=== PATIENT | female | born 1955 | race Caucasian/White ===

== ENCOUNTER 2017-01-05 15:50 | Emergency (ER) | payer BC, MEDICARE ==
[~2017-01-05] VITALS: Ht 154.9 cm; Wt 54.3 kg
[~2017-01-05 15:50] MED LIST: ACTO5TAB PO; DICL75 PO; HYDR-3533 PO
[2017-01-05 15:55] VITALS: BP 138/80; PULSE 95; RESP 16; TEMP 98.9; O2SAT 97
[2017-01-05] MEDS ORDERED: FISH500C (16:06)
[2017-01-05] MEDS ORDERED: ASPI81CH CHEW (16:06)
[2017-01-05] MEDS ORDERED: CENTTAB PO (16:06)
[2017-01-05] MEDS ORDERED: SODIUM CHLOR 0.9% 1000 ML INJ 1,000 ML IV SCH (16:19)
[2017-01-05] MEDS ORDERED: SODIUM CHLORIDE 0.9% FLUSH 10 ML FLUSH IV FLUSH PRN (16:30)
[2017-01-05 16:35] VITALS: O2SAT 96
[2017-01-05 16:35] LABS: BLOOD, URINE TRACE (NEG); GLUCOSE,URINE NEG (NEG); KETONE, URINE NEG (NEG); NITRITE,URINE NEG (NEG)
[2017-01-05 16:36] LABS: AUTOMATED NEUTROPHIL # 8.1 TH/MM3 (1.8-7.7); BASOPHIL % 0.4 % (0.0-2.0); EOSINOPHIL # 0.1 TH/MM3 (0-0.4); EOSINOPHIL % 0.6 % (0.0-4.0); LYMPH % 11.9 % (9.0-44.0); LYMPHOCYTE # 1.2 TH/MM3 (1.0-4.8); MEAN CELL VOLUME 88.8 FL (80.0-100.0); MEAN CORPUSCULAR HEMOGLOBIN 31.3 PG (27.0-34.0); MEAN CORPUSCULAR HGB CONC 35.3 % (32.0-36.0); MONO % 5.8 % (0.0-8.0); NEUT % 81.3 % (16.0-70.0); PLATELET COUNT 222 TH/MM3 (150-450); RED BLOOD COUNT 4.17 MIL/MM3 (4.00-5.30); WHITE BLOOD COUNT 10.1 TH/MM3 (4.0-11.0)
[2017-01-05 16:38] VITALS: BP 132/67; PULSE 83; RESP 20; O2SAT 100
[2017-01-05 16:38] LABS: HEMO FLAGS DIFF FINAL
[2017-01-05 16:44] LABS: URINE COLOR YELLOW (YELLW/STRAW)
[2017-01-05 16:45] LABS: RBC, URINE 0-3 /hpf (0-3); SQUAMOUS EPITHELIAL CELL URINE 0-5 /hpf (0-5); WBC, URINE 0-2 /hpf (0-5)
[2017-01-05 16:46] LABS: CHLORIDE 104 MEQ/L (98-107); POTASSIUM 3.4 MEQ/L (3.5-5.1); SODIUM (NA) 139 MEQ/L (136-145)
[2017-01-05 16:48] LABS: COMMENT (UR) CULT NOT INDICATED; CULTURE IF INDICATED CULT NOT INDICATED
[2017-01-05 16:50] LABS: ANION GAP 7 MEQ/L (5-15); BLOOD UREA NITROGEN 9 MG/DL (7-18)
[2017-01-05 16:53] LABS: ALT (GPT) 33 U/L (10-53); AST (GOT) 23 U/L (15-37); GLOMERULAR FILTRATION RATE 91 ML/MIN (>89)
[2017-01-05 16:54] LABS: TOTAL BILIRUBIN ADULT 0.7 MG/DL (0.2-1.0)
[2017-01-05 16:56] LABS: ALKALINE PHOSPHATASE 102 U/L (45-117)
[2017-01-05 17:27] VITALS: BP 112/71; PULSE 88; RESP 20; O2SAT 100
[2017-01-05] MEDS ORDERED: IOHEXOL 350 MG/ML 10 ML VIAL (for RAD DIAG) IV ONE (17:33)
--- NOTE | 2017-01-05 17:51 | PD ---
HPI Chief Complaint: GI Complaint Time Seen by Provider: 16:11 Travel History International Travel<30 days: No Contact w/Intl Traveler<30days: No Traveled to known affect area: No History of Present Illness HPI This is a 61-year-old female who presents to the emergency department with lower abdominal pain that's been present for 3 days, constant, moderate severity associated with watery stools which are nonbloody. She denies any nausea, vomiting or fevers. She 5 years ago she had an episode of colitis and followed up with Dr. Flavia Obrien who said it was likely an isolated episode. She denies any recent antibiotic use. She's not traveled anywhere recently. PFSH Past Medical History Diminished Hearing: No Gastrointestinal Disorders: Yes (COLITIS) Musculoskeletal: Yes (OSETOPOROSIS) Menopausal: Yes Past Surgical History Hysterectomy: Yes Social History Alcohol Use: No Tobacco Use: No (QUIT) Substance Use: No Allergies-Medications (Allergen,Severity, Reaction): Coded Allergies: No Known Allergies (Verified , 01/05/17) Reported Meds & Prescriptions Reported Meds & Active Scripts Active Reported Centrum Silver (Multiple Vitamins W/ Minerals) 1 Tab 1 Tab PO DAILY Fish Oil ([place]-3 Fatty Acids) 500 Mg Cap Aspirin 81 Mg Chew 81 Mg CHEW ONCE Review of Systems Except as stated in HPI: all other systems reviewed are Neg Physical Exam Narrative GENERAL:Well appearing, no acute distress SKIN: Focused skin assessment warm and dry. HEAD: Atraumatic. Normocephalic. EYES: Pupils equal and round. No injection or drainage. ENT: Dry mucous membranes. NECK: Trachea midline. CARDIOVASCULAR: Regular rate and rhythm. No murmur appreciated. RESPIRATORY: Clear to auscultation. Breath sounds equal bilaterally. GASTROINTESTINAL: Abdomen soft, tender to palpation in the lower abdomen with no rebound or guarding. MUSCULOSKELETAL: No obvious deformities. NEUROLOGICAL: Awake and alert. No obvious cranial nerve deficits. Moving all extremities. PSYCHIATRIC: Appropriate mood and affect; insight and judgment normal. Data Data Last Documented VS Vital Signs Date Time Temp Pulse Resp B/P Pulse Ox O2 Delivery O2 Flow Rate FiO2 01/05/17 17:27 88 20 112/71 100 01/05/17 15:55 98.9 Orders Complete Blood Count With Diff (01/05/17 16:19) Comprehensive Metabolic Panel (01/05/17 16:19) Lipase (01/05/17 16:19) Urinalysis - C+S If Indicated (01/05/17 16:19) Ct Abd/Pel W Iv Contrast(Rout) (01/05/17 16:19) Iv Access Insert/Monitor (01/05/17 16:19) Ecg Monitoring (01/05/17 16:19) Oximetry (01/05/17 16:19) Sodium Chlor 0.9% 1000 Ml Inj (Ns 1000 M (01/05/17 16:19) Sodium Chloride 0.9% Flush (Ns Flush) (01/05/17 16:30) Iohexol 350 Inj (Omnipaque 350 Inj) (01/05/17 17:33) Labs Laboratory Tests Test 01/05/17 16:25 White Blood Count 10.1 TH/MM3 Red Blood Count 4.17 MIL/MM3 Hemoglobin 13.1 GM/DL Hematocrit 37.0 % Mean Corpuscular Volume 88.8 FL Mean Corpuscular Hemoglobin 31.3 PG Mean Corpuscular Hemoglobin 35.3 % Concent Red Cell Distribution Width 12.0 % Platelet Count 222 TH/MM3 Mean Platelet Volume 7.8 FL Neutrophils (%) (Auto) 81.3 % Lymphocytes (%) (Auto) 11.9 % Monocytes (%) (Auto) 5.8 % Eosinophils (%) (Auto) 0.6 % Basophils (%) (Auto) 0.4 % Neutrophils # (Auto) 8.1 TH/MM3 Lymphocytes # (Auto) 1.2 TH/MM3 Monocytes # (Auto) 0.6 TH/MM3 Eosinophils # (Auto) 0.1 TH/MM3 Basophils # (Auto) 0.0 TH/MM3 CBC Comment DIFF FINAL Differential Comment Urine Color YELLOW Urine Turbidity CLEAR Urine pH 6.0 Urine Specific [place] 1.012 Urine Protein NEG mg/dL Urine Glucose (UA) NEG mg/dL Urine Ketones NEG mg/dL Urine Occult Blood TRACE Urine Nitrite NEG Urine Bilirubin NEG Urine Leukocyte Esterase NEG Urine RBC 0-3 /hpf Urine WBC 0-2 /hpf Urine Squamous Epithelial 0-5 /hpf Cells Microscopic Urinalysis Comment CULT NOT INDICATED Sodium Level 139 MEQ/L Potassium Level 3.4 MEQ/L Chloride Level 104 MEQ/L Carbon Dioxide Level 28.0 MEQ/L Anion Gap 7 MEQ/L Blood Urea Nitrogen 9 MG/DL Creatinine 0.66 MG/DL Estimat Glomerular Filtration 91 ML/MIN Rate Random Glucose 105 MG/DL Calcium Level 8.4 MG/DL Total Bilirubin 0.7 MG/DL Aspartate Amino Transf 23 U/L (AST/SGOT) Alanine Aminotransferase 33 U/L (ALT/SGPT) Alkaline Phosphatase 102 U/L Total Protein 6.8 GM/DL Albumin 3.2 GM/DL Lipase 80 U/L MDM Medical Decision Making Medical Screen Exam Complete: Yes Emergency Medical Condition: Yes Interpretation(s) Afebrile, no tachycardia, normotensive No leukocytosis 81% neutrophils Electrolytes are reassuring Urinalysis is negative for infection Differential Diagnosis Acute diverticulitis, colitis, dehydration, gastroenteritis, electrolyte abnormality Narrative Course This is a 61-year-old female who presents to the emergency department with lower abdominal pain that's been going on for several days. She was placed on a monitor and an IV was established. Labs are reassuring. CT demonstrates acute diverticulitis. Patient will be given a dose of IV antibiotic here in the emergency department. I discussed the options of admission versus outpatient management. She prefer to try to manage this at home which I think is reasonable given her labs are reassuring and she is fairly healthy. Patient will be discharged with ciprofloxacin, Flagyl, pain control and antiemetics and asked her to follow a clear liquid diet. I asked her to follow up with her primary care physician in 48 hours for recheck. She'll return if she feels worse. Diagnosis Primary Impression: Acute diverticulitis Patient Instructions: General Instructions Additional Instructions: Sometimes patients with diverticulitis require admission to the hospital for IV antibiotics. If you develop worsening or severe abdominal pain, persistent fevers, or inability to drink return to the emergency department. Follow a clear liquid diet for 3 days until you notice your symptoms improving, then slowly advance your diet. Complete your course of antibiotics. Follow up with your primary care physician as soon as possible to ensure you are improving. Med/Other Pt SpecificInfo: Prescription(s) given Scripts Tramadol 50 Mg Tab50 Mg PO Q6H PRN (PAIN) #15 TAB Prov:Rosa Guerrero MD 01/05/17 Metronidazole (Flagyl)500 Mg Tar196 Mg PO BID 10 Days Prov:Rosa Guerrero MD 01/05/17 Ciprofloxacin 500 Mg [id number] Mg PO BID 10 Days Prov:Rosa Guerrero MD 01/05/17 Disposition: 01 DISCHARGE HOME Condition: Stable Rosa Guerrero MD January 05, 2017 17:51
--- NOTE | 2017-01-05 17:53 | RADHPO ---
EXAM DATE/TIME: 01/05/2017 17:25 [facility] COMPARISON: CT ABDOMEN & PELVIS W CONTRAST, May 20, 2013, 12:29. INDICATIONS : Low abdominal pain with diarrhea. IV CONTRAST: 100 cc Omnipaque 350 (iohexol) IV ORAL CONTRAST: No oral contrast ingested. RADIATION DOSE: 7.10 CTDIvol (mGy) MEDICAL HISTORY : Osteoporosis. Colitis. SURGICAL HISTORY : Hysterectomy. ENCOUNTER: Initial ACUITY: 2 days PAIN SCALE: 8/10 LOCATION: lower quadrant abdomen TECHNIQUE: Volumetric scanning of the abdomen and pelvis was performed. Using automated exposure control and ad justment of the mA and/or kV according to patient size, radiation dose was kept as low as reasonably achievable to obtain optimal diagnostic quality images. FINDINGS: LOWER LUNGS: The visualized lower lungs are clear. LIVER: Homogeneous density without lesion. There is no dilation of the biliary tree. No calcified gallston es. SPLEEN: Normal size without lesion. PANCREAS: Within normal limits. KIDNEYS: Normal in size and shape. There is no mass, stone or hydronephrosis. ADRENAL GLANDS: Within normal limits. VASCULAR: There is no aortic aneurysm. BOWEL/MESENTERY: An acute inflammatory process is seen involving the sigmoid colon. There is stranding in the adjacent fat and thickening of the wall. Numerous colonic diverticuli are seen within the sigmoid colon. No f ree air, free fluid, abscess, or obstruction. Remaining bowel structures are unremarkable. ABDOMINAL WALL: Within normal limits. RETROPERITONEUM: There is no lymphadenopathy. BLADDER: No wall thickening or mass. REPRODUCTIVE: Within normal limits. INGUINAL: There is no lymphadenopathy or hernia. MUSCULOSKELETAL: Within normal limits for patient age. CONCLUSION: 1. Acute sigmoid diverticulitis without abscess, perforation, or obstruction. Devin Maldonado Jr., MD on January 05, 2017 at 17:48 Board Certified Radiologist. This report was verified electronically.
[2017-01-05] MEDS ORDERED: CIPR500T2 PO (18:08)
[2017-01-05] MEDS ORDERED: TRAM50TA PO (18:08)
[2017-01-05] MEDS ORDERED: METR-1 PO (18:08)
[2017-01-05] MEDS ORDERED: CIPROFLOXACIN 400 MG PREMIX 200 ML IV ONE (18:15)
[2017-01-05] MEDS ORDERED: metroNIDAZOLE 500 MG INJ 100 ML IV ONE (18:15)
[2017-01-05] MEDS ORDERED: MORPHINE SULFATE 4 MG/ML INJ IV PUSH ONE (18:15)
[2017-01-05 18:19] VITALS: BP 159/73; PULSE 96; RESP 20; O2SAT 95
[2017-01-05 19:17] VITALS: BP 115/58; PULSE 85; RESP 18; O2SAT 96
== END 2017-01-05 20:01 | disposition home or self-care (01) ==
LOC: PHED 15:50
DX: K57.92 Diverticulitis of intestine, part unspecified, without perforation or abscess without bleeding (principal); M81.0 Age-related osteoporosis without current pathological fracture; Z87.891 Personal history of nicotine dependence
CPT/HCPCS: 74177; 80053; 81001; 83690; 85025; 96361; 96365; 96367; 96375; 99284; J0744; J2270; J7030; Q9967

== ENCOUNTER 2017-01-24 06:45 | Emergency (ER) | payer MEDICARE ==
[~2017-01-24] VITALS: Ht 154.9 cm; Wt 56.2 kg
[~2017-01-24 06:45] MED LIST changes: -ACTO5TAB PO; +ASPI81CH CHEW; +CENTTAB PO; +CIPR500T2 PO; -DICL75 PO; +FISH500C; -HYDR-3533 PO; +METR-1 PO; +TRAM50TA PO
[2017-01-24 06:48] VITALS: BP 128/80; PULSE 63; RESP 16; TEMP 97.5; O2SAT 96
[2017-01-24] MEDS ORDERED: ACETAMINOPHEN/HYDROcodone 325 MG/5 MG TAB PO ONE (07:15)
--- NOTE | 2017-01-24 07:16 | RADHPO ---
EXAM DATE/TIME: 01/24/2017 06:58 [facility] COMPARISON: No previous studies available for comparison. INDICATIONS : Fell in bathroom this morning. Right wrist pain. MEDICAL HISTORY : None. SURGICAL HISTORY : None. ENCOUNTER: Initial ACUITY: 1 day PAIN SCORE: 8/10 LOCATION: Right posterior Wrist FINDINGS: Three view examination of the right wrist demonstrates soft tissue swelling and minimally displaced f racture distal radius. Ulna intact. Bony mineralization is normal. CONCLUSION: Minimally displaced distal radius fracture. Mohamud Dueñas MD on January 24, 2017 at 7:14 Board Certified Radiologist. This report was verified electronically.
[2017-01-24] MEDS ORDERED: NORC5TAB PO (07:32)
--- NOTE | 2017-01-24 07:32 | PD ---
HPI Chief Complaint: Injury Time Seen by Provider: 06:59 Travel History International Travel<30 days: No Contact w/Intl Traveler<30days: No Traveled to known affect area: No History of Present Illness HPI Patient is a 61 year old female who comes in after a slip and fall today. She says she was getting into the shower when she slipped and fell on her right side. She says she caught herself with her right hand and the rest of her body landed on a rug. She denies hitting her head or any LOC. She is complaining of pain only to the right wrist. PFSH Past Medical History Diminished Hearing: No Gastrointestinal Disorders: Yes (COLITIS) Musculoskeletal: Yes (OSETOPOROSIS) ?: Not Menopausal: Yes Past Surgical History Hysterectomy: Yes Social History Alcohol Use: No Tobacco Use: No (QUIT) Substance Use: No Allergies-Medications (Allergen,Severity, Reaction): Coded Allergies: No Known Allergies (Verified , 01/24/17) Reported Meds & Prescriptions Reported Meds & Active Scripts Active [place] (Hydrocodone-Acetaminophen) 5-325 mg Tab 1 Tab PO Q6H PRN Reported Centrum Silver (Multiple Vitamins W/ Minerals) 1 Tab 1 Tab PO DAILY Fish Oil ([place]-3 Fatty Acids) 500 Mg Cap Aspirin 81 Mg Chew 81 Mg CHEW ONCE Review of Systems Eyes: No: Blurred Vision HENT: No: Headaches, Lightheadedness Cardiovascular: No: Chest Pain or Discomfort Respiratory: No: Shortness of Breath Gastrointestinal: No: Nausea, Vomiting Musculoskeletal: Positive: Limited ROM, Pain Skin: No Rash, No Change in Pigmentation Neurologic: No: Weakness, Dizziness Physical Exam Narrative GENERAL: Awake and alert, no acute distress. SKIN: Focused skin assessment warm/dry. HEAD: Atraumatic. Normocephalic. EYES: Pupils equal and round. No scleral icterus. ENT: Mucous membranes pink and moist. CARDIOVASCULAR: Regular rate and rhythm. No murmur appreciated. RESPIRATORY: No accessory muscle use. Clear to auscultation. Breath sounds equal bilaterally. MUSCULOSKELETAL: No obvious deformities. No clubbing. No cyanosis. No edema. Tender to palpation of the right radius. Pain with movement of the wrist. Radial pulse intact. Sensation intact. No tenderness to the cervical, thoracic , lumbar spine. No tenderness to the pelvis or hips. She has full range of motion of both legs. NEUROLOGICAL: Awake and alert. No obvious cranial nerve deficits. Motor grossly within normal limits. Normal speech. Data Data Last Documented VS Vital Signs Date Time Temp Pulse Resp B/P Pulse Ox O2 Delivery O2 Flow Rate FiO2 01/24/17 07:46 60 16 96 01/24/17 06:48 97.5 128/80 Orders Wrist, Complete ([id number]) (01/24/17 06:54) Acetamin-Hydrocod 325-5 Mg ([place] 5-325 (01/24/17 07:15) Splint Or Brace Apply/Monitor (01/24/17 07:25) [facility] Medical Decision Making Medical Screen Exam Complete: Yes Emergency Medical Condition: Yes Differential Diagnosis Wrist fracture versus wrist sprain versus muscle strain Narrative Course Patient is a 61-year-old female comes in complaining of right wrist pain after slip and fall. Exam shows tenderness to the right wrist. Sensation and pulses are intact. X-ray performed shows a fracture of the distal radius, minimally displaced. Sugar tong splint placed. Patient given pain medicine. Will be discharged in the splint with prescription for pain medicine. Advised follow- up with orthopedics. Advised to return to the ED as needed for any worsening symptoms. Diagnosis Primary Impression: Wrist fracture, right Qualified Code: S62.101A - Wrist fracture, right, closed, initial encounter Patient Instructions: General Instructions, Wrist Fracture in Adults (ED) Additional Instructions: Take pain medicine as needed, be careful as narcotics may make you drowsy. Follow up with orthopedics. Keep your splint dry. Return to the ED as needed for any worsening symptoms. Scripts Hydrocodone-Acetaminophen ([place])5-325 mg Tab1 Tab PO Q6H PRN (PAIN) #15 TAB Ref 0 Prov:Neema Shaffer MD 01/24/17 Disposition: 01 DISCHARGE HOME Condition: Stable Neema Shaffer MD January 24, 2017 07:32
== END 2017-01-24 07:47 | disposition home or self-care (01) ==
LOC: PHED 06:45
DX: S62.101A Fracture of unspecified carpal bone, right wrist, initial encounter for closed fracture (principal); W18.2XXA Fall in (into) shower or empty bathtub, initial encounter; Y93.9 Activity, unspecified; Y92.9 Unspecified place or not applicable; Y99.9 Unspecified external cause status
CPT/HCPCS: 29125; 73110

== ENCOUNTER 2017-02-21 14:51 | Emergency (ER) | payer MEDICARE ==
[~2017-02-21] VITALS: Ht 154.9 cm; Wt 55.0 kg
[~2017-02-21 14:51] MED LIST changes: -CIPR500T2 PO; -METR-1 PO; +NORC5TAB PO; -TRAM50TA PO
[2017-02-21 15:02] VITALS: BP 133/77; PULSE 96; RESP 16; TEMP 98.2; O2SAT 97
[2017-02-21] MEDS ORDERED: MULT1TAB PO (15:15)
[2017-02-21] MEDS ORDERED: GLUC15009 PO (15:15)
[2017-02-21] MEDS ORDERED: SODIUM CHLORIDE 0.9% FLUSH 10 ML FLUSH IV FLUSH PRN (15:45)
[2017-02-21 15:52] LABS: AUTOMATED NEUTROPHIL # 6.3 TH/MM3 (1.8-7.7); BASOPHIL % 0.4 % (0.0-2.0); EOSINOPHIL # 0.1 TH/MM3 (0-0.4); EOSINOPHIL % 1.5 % (0.0-4.0); HEMATOCRIT 36.2 % (35.0-46.0); HEMO FLAGS DIFF FINAL; LYMPH % 15.1 % (9.0-44.0); LYMPHOCYTE # 1.3 TH/MM3 (1.0-4.8); MEAN CELL VOLUME 88.2 FL (80.0-100.0); MEAN CORPUSCULAR HEMOGLOBIN 30.1 PG (27.0-34.0); MEAN CORPUSCULAR HGB CONC 34.2 % (32.0-36.0); PLATELET COUNT 246 TH/MM3 (150-450); RED CELL DISTRIBUTION WIDTH 13.1 % (11.6-17.2); WHITE BLOOD COUNT 8.3 TH/MM3 (4.0-11.0)
[2017-02-21 15:57] LABS: CHLORIDE 107 MEQ/L (98-107); POTASSIUM 3.5 MEQ/L (3.5-5.1); SODIUM (NA) 144 MEQ/L (136-145)
[2017-02-21 16:01] LABS: ANION GAP 8 MEQ/L (5-15)
[2017-02-21 16:02] LABS: BLOOD UREA NITROGEN 5 MG/DL (7-18)
[2017-02-21] MEDS ORDERED: HYDR-3533 PO (16:03)
[2017-02-21] MEDS ORDERED: AUGM875T3 PO (16:03)
--- NOTE | 2017-02-21 16:03 | PD ---
HPI Chief Complaint: GI Complaint Time Seen by Provider: 15:35 Travel History International Travel<30 days: No Contact w/Intl Traveler<30days: No Traveled to known affect area: No History of Present Illness HPI Is a 61 year-old woman who presents to the emergency department complaining of lower abdominal pain. She is a history of diverticulitis. She states that she started getting left lower quadrant abdominal pain associated with diarrhea last night. Feels exactly similar to her previous episodes diverticulitis. She had some chills but no fever. She otherwise had been feeling well. Only abdominal surgical history includes hysterectomy. Of abdominal surgeries History Past Medical History Narrative Medical Diverticulitis Arthritis Menopausal: Yes Social History Alcohol Use: No Tobacco Use: No (QUIT) Allergies-Medications (Allergen,Severity, Reaction): Coded Allergies: No Known Allergies (Verified , 02/21/17) Reported Meds & Prescriptions Reported Meds & Active Scripts Active Reported Glucosamine 1,500 Mg Tab 1,500 Mg PO DAILY Centrum Silver Adult 50+ (Multiple Vitamins W/ Minerals) 1 Tab Tab 1 Tab PO DAILY Fish Oil ([place]-3 Fatty Acids) 500 Mg Cap Aspirin 81 Mg Chew 81 Mg CHEW ONCE Review of Systems Except as stated in HPI: all other systems reviewed are Neg Physical Exam Narrative GENERAL: Well-appearing 7-year-old woman, no acute distress. SKIN: Focused skin assessment warm/dry. HEAD: Atraumatic. Normocephalic. CARDIOVASCULAR: Regular rate and rhythm. No murmur appreciated. RESPIRATORY: No accessory muscle use. Clear to auscultation. Breath sounds equal bilaterally. GASTROINTESTINAL: Normal contour and appearance. Mild lower abdominal tenderness in the left lower quadrant. No significant guarding. MUSCULOSKELETAL: No obvious deformities. No clubbing. No cyanosis. No edema. NEUROLOGICAL: Awake and alert. No obvious cranial nerve deficits. Motor grossly within normal limits. Normal speech. PSYCHIATRIC: Appropriate mood and affect; insight and judgment normal. Data Data Last Documented VS Vital Signs Date Time Temp Pulse Resp B/P Pulse Ox O2 Delivery O2 Flow Rate FiO2 02/21/17 15:12 16 02/21/17 15:02 98.2 96 133/77 97 Orders Complete Blood Count With Diff (02/21/17 15:41) Comprehensive Metabolic Panel (02/21/17 15:41) Iv Access Insert/Monitor (02/21/17 15:41) Sodium Chloride 0.9% Flush (Ns Flush) (02/21/17 15:45) Labs Laboratory Tests Test 02/21/17 15:46 White Blood Count 8.3 TH/MM3 Red Blood Count 4.10 MIL/MM3 Hemoglobin 12.4 GM/DL Hematocrit 36.2 % Mean Corpuscular Volume 88.2 FL Mean Corpuscular Hemoglobin 30.1 PG Mean Corpuscular Hemoglobin 34.2 % Concent Red Cell Distribution Width 13.1 % Platelet Count 246 TH/MM3 Mean Platelet Volume 7.2 FL Neutrophils (%) (Auto) 76.0 % Lymphocytes (%) (Auto) 15.1 % Monocytes (%) (Auto) 7.0 % Eosinophils (%) (Auto) 1.5 % Basophils (%) (Auto) 0.4 % Neutrophils # (Auto) 6.3 TH/MM3 Lymphocytes # (Auto) 1.3 TH/MM3 Monocytes # (Auto) 0.6 TH/MM3 Eosinophils # (Auto) 0.1 TH/MM3 Basophils # (Auto) 0.0 TH/MM3 CBC Comment DIFF FINAL Differential Comment Sodium Level 144 MEQ/L Potassium Level 3.5 MEQ/L Chloride Level 107 MEQ/L [facility] Medical Decision Making Medical Screen Exam Complete: Yes Emergency Medical Condition: Yes Interpretation(s) LABS: CBC unremarkable Differential Diagnosis Diverticular colitis, perforation, abscess, other Narrative Course Medical decision making INITIAL: This is a 61 woman presents to the emergency department complaining of left four-quadrant abdominal pain since her previous diverticulitis episodes. Looks well. No fever. No white count. Recommend empiric treatment for acute diverticulitis, close outpatient follow-up. Diagnosis Primary Impression: Acute diverticulitis Patient Instructions: General Instructions Additional Instructions: Take Augmentin as prescribed. Follow Up with your primary doctor in the next 3-5 days. Return to the emergency department for any new or worsening symptoms. Worsening abdominal pain, bloody diarrhea, high fevers, or any other Med/Other Pt SpecificInfo: Prescription(s) given Scripts Hydrocodone-Acetaminophen (Lortab)5-325 Mg Tab1-2 Tab PO Q6H PRN (PAIN) #12 TAB Prov:Lopez Cordoba MD 02/21/17 Amoxicillin-Clavulanate (Augmentin)875-125 Mg Tab1 Tab PO BID 14 Days Ref 0 Prov:Lopez Cordoba MD 02/21/17 Disposition: 01 DISCHARGE HOME Condition: Stable Lopez Cordoba MD Feb 21, 2017 16:03
[2017-02-21 16:04] LABS: ALT (GPT) 57 U/L (10-53); AST (GOT) 44 U/L (15-37)
[2017-02-21 16:05] LABS: GLOMERULAR FILTRATION RATE 106 ML/MIN (>89)
[2017-02-21 16:06] LABS: TOTAL BILIRUBIN ADULT 0.5 MG/DL (0.2-1.0)
[2017-02-21 16:07] LABS: ALKALINE PHOSPHATASE 115 U/L (45-117)
[2017-02-21] MEDS ORDERED: AMOXICILLIN/CLAVULANATE K 875 MG TAB PO ONE (16:15)
[2017-02-21 16:24] VITALS: BP 144/64
== END 2017-02-21 16:32 | disposition home or self-care (01) ==
LOC: PHED 14:51
DX: K57.92 Diverticulitis of intestine, part unspecified, without perforation or abscess without bleeding (principal); Z87.891 Personal history of nicotine dependence
CPT/HCPCS: 80053; 85025; 99284

== ENCOUNTER 2018-06-30 10:06 | Inpatient (IN) ==
[2018-06-30] MEDS ORDERED: Sod Chloride 0.9% Inj 1,000 ML IV.SIG ONE (10:33)
[2018-06-30] MEDS ORDERED: Morphine Inj 4 MG/ML Vial IV.PUSH ONE (10:33)
--- NOTE | 2018-06-30 10:48 | ED ---
HPI General Chief Complaint: Abdominal Pain Stated Complaint: Abd pain/N/V/D x 4 days Time Seen by Provider: 06/30/18 10:24 Source: patient Mode of arrival: ambulatory Limitations: no limitations History of Present Illness HPI narrative: Patient is a 62-year-old female who presents to the emergency room for evaluation of abdominal pain. Patient reports that she does have history of diverticulitis, she has been suffering with this for the past 3 years. Patient reports that on Tuesday, she began to have abdominal pain. Patient reports that she did follow-up with her primary care doctor, Dr. Addy Marinelli and was started on antibiotics for possible diverticulitis. Patient has been taking ciprofloxacin as well as Flagyl. Patient reports that she was also sent for an outpatient CT of her abdomen pelvis, she did obtain this on Tuesday. Patient reports that she was told that she had some thickening of her colon suggestive of colitis. Patient reports that she cannot tolerate this pain anymore, reports that she feels nauseous and has been having multiple episodes of diarrhea. Patient reports that initially, she had about 6 episodes of diarrhea and now it is much better and she had about 2-3 episodes yesterday. 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 Patient has been following a liquid diet suggested by her pcp - reports " nothing is working." She was also told that she would need workup for possible ulcerative colitis. Related Data Home Medications Medication Instructions Recorded Confirmed alendronate 70 mg PO QWEEK 06/30/18 06/30/18 aspirin 81 mg PO DAILY 06/30/18 06/30/18 ciprofloxacin HCl 500 mg PO Q12H 06/30/18 06/30/18 spfddwavkim-jrjblhpnw-dau C-Mn 1 tab PO DAILY 06/30/18 06/30/18 [Glucosamine-Chondroitin Complx] metronidazole 500 mg PO TID 06/30/18 06/30/18 omega-3 fatty acids-fish oil [Fish 1 cap PO BID 06/30/18 06/30/18 Oil] ondansetron 4 mg PO Q6-8H PRN 06/30/18 06/30/18 silver sulfadiazine 1 applic TOPICAL DAILY 06/30/18 06/30/18 Allergies Allergy/AdvReac Type Severity Reaction Status Date / Time No Known Allergies Allergy Verified 06/30/18 10:09 Review of Systems ROS: all other systems reviewed are negative [facility] Medical History Medical History Diverticulitis (Acute) History of hysterectomy (Acute) Surgical History Surgical History History of hand surgery (Acute) History of knee surgery (Acute) Hx of foot surgery (Acute) Social History Social History Substance History: No History of Abuse Smoking Status: Current some day smoker Tobacco Type: Cigars How Often Do You Have a Drink Containing Alcohol: Monthly or less Recent Travel in [facility] within the Last 8 Weeks: No Recent Out of Country Travel within the Last 8 Weeks: No Immunization History Tetanus Immunization: <5 Years Exam Narrative Exam Narrative: GENERAL: Moderate distress SKIN: Focused skin assessment warm/dry. HEAD: Atraumatic. Normocephalic. EYES: Pupils equal and round. No scleral icterus. No injection or drainage. ENT: No nasal bleeding or discharge. Mucous membranes pink and moist. NECK: Trachea midline. No JVD. CARDIOVASCULAR: Regular rate and rhythm. No murmur appreciated. RESPIRATORY: No accessory muscle use. Clear to auscultation. Breath sounds equal bilaterally. GASTROINTESTINAL: Abdomen soft, tenderness to lower abdomen with no rebound or guarding on exam, nondistended. Hepatic and splenic margins not palpable. MUSCULOSKELETAL: No obvious deformities. No clubbing. No cyanosis. No edema. NEUROLOGICAL: Awake and alert. No obvious cranial nerve deficits. Motor grossly within normal limits. Normal speech. PSYCHIATRIC: Appropriate mood and affect; insight and judgment normal. Course Initial Documented Vital Signs Temperature 97.8 F 06/30/18 10:09 Pulse Rate 74 06/30/18 10:09 Respiratory Rate 18 06/30/18 10:09 Blood Pressure 144/67 H 06/30/18 10:09 Pulse Oximetry 95 06/30/18 10:09 Last Documented Vital Signs Temperature 97.8 F 06/30/18 10:09 Pulse Rate 77 06/30/18 11:19 Respiratory Rate 18 06/30/18 10:09 Blood Pressure 139/72 06/30/18 11:19 Pulse Oximetry 93 L 06/30/18 11:19 Medical Decision Making MDM Narrative Medical decision making narrative: During the course of the patients emergency department visit, the patients history, examination, and differential diagnosis were reviewed with the patient. The patient was placed on a surveillance monitor with oximetry and frequent blood pressure monitoring. The patient had an IV access obtained and blood work sent for analysis. The patient was initially provided IV morphine, IV zofran as well as IV fluids I was able to pull up the imaging studies from [facility] [place] [facility]. Patient had diffuse thickening involving the wall of the colon suggesting diffuse colitis. There was pericolic inflammatory changes also noted and are most prominent in the region of the sigmoid colon. There are scattered diverticuli also noted. Case reviewed with Dr. Bagley who accepts pt to service Plan to admit patient to the hospital for further management of her symptoms. Patient did take a dose of Flagyl as well as ciprofloxacin earlier this morning Medical Screen Exam Complete: Yes Emergency Medical Condition: Yes Lab Data Result diagrams: 06/30/18 11:00 06/30/18 11:00 Lab Results 06/30/18 06/30/18 06/30/18 Range/Units 10:50 11:00 11:00 CBC w Diff Auto diff final WBC 4.1 (4.0-11.0) th/mm3 RBC 4.39 (4.00-5.30) mil/mm3 Hgb 13.8 (11.6-15.3) gm/dL Hct 39.6 (35.0-46.0) % MCV 90.2 (80.0-100.0) fL MCH 31.4 (27.0-34.0) pg MCHC 34.8 (32.0-36.0) % RDW 12.8 (11.6-17.2) % Plt Count 227 (150-450) th/mm3 MPV 7.7 (7.0-11.0) fL Neut % (Auto) 70.5 H (16.0-70.0) % Lymph % (Auto) 15.6 (9.0-44.0) % [place] % (Auto) 10.5 H (0.0-8.0) % Eos % (Auto) 2.6 (0.0-4.0) % Baso % (Auto) 0.8 (0.0-2.0) % Neut # (Auto) 3.0 (1.8-7.7) th/mm3 Lymph # (Auto) 0.6 L (1.0-4.8) th/mm3 [place] # (Auto) 0.4 (0.0-0.9) th/mm3 Eos # (Auto) 0.1 (0.0-0.4) th/mm3 Baso # (Auto) 0.0 (0.0-0.2) th/mm3 WBC Differential . Differential Comment . PT 11.5 (9.8-11.6) sec INR 1.1 Ratio APTT 28.3 (24.3-30.1) sec Sodium (136-145) meq/L Potassium (3.5-5.1) meq/L Chloride (98-107) meq/L Carbon Dioxide (21.0-32.0) meq/L Anion Gap (5-15) meq/L BUN (7-18) mg/dL Creatinine (0.50-1.00) mg/dL Estimated GFR (>89) mL/min Random Glucose (74-106) mg/dL Calcium (8.5-10.1) mg/dL Magnesium (1.5-2.5) mg/dL Total Bilirubin (0.2-1.0) mg/dL AST (15-37) U/L ALT (10-53) U/L Alkaline Phosphatase (45-117) U/L Total Protein (6.4-8.2) g/dL Albumin (3.4-5.0) g/dL Lipase (73-393) U/L Urine Color Yellow (Yellw/Straw) Urine Clarity Clear (Clear) Urine pH 5.0 (5.0-8.5) Ur Specific [place] Greater/equal 1.030 (1.002-1.035) Urine Protein 100 H (Neg-Trace) mg/dL Urine Glucose (UA) Negative (Negative) mg/dL Urine Ketones 40 H (Negative) mg/dL Urine Occult Blood Negative (Negative) Urine Nitrate Positive H (Negative) Urine Bilirubin Negative (Negative) Urine Ictotest Negative (Negative) Urine Urobilinogen 1.0 (Less than 2) mg/dL Ur Leukocyte Esterase Trace H (Negative) Urine RBC 0-3 (0-3) /hpf Urine WBC 0-5 (0-5) /hpf Ur Squamous Epith Cells 0-5 (0-5) /hpf Micro UA Comment Culture not ind Ur Microscopic Review Microscopic reviewed Urine Culture Comments Culture not ind 06/30/18 Range/Units 11:00 CBC w Diff WBC (4.0-11.0) th/mm3 RBC (4.00-5.30) mil/mm3 Hgb (11.6-15.3) gm/dL Hct (35.0-46.0) % MCV (80.0-100.0) fL MCH (27.0-34.0) pg MCHC (32.0-36.0) % RDW (11.6-17.2) % Plt Count (150-450) th/mm3 MPV (7.0-11.0) fL Neut % (Auto) (16.0-70.0) % Lymph % (Auto) (9.0-44.0) % [place] % (Auto) (0.0-8.0) % Eos % (Auto) (0.0-4.0) % Baso % (Auto) (0.0-2.0) % Neut # (Auto) (1.8-7.7) th/mm3 Lymph # (Auto) (1.0-4.8) th/mm3 [place] # (Auto) (0.0-0.9) th/mm3 Eos # (Auto) (0.0-0.4) th/mm3 Baso # (Auto) (0.0-0.2) th/mm3 WBC Differential Differential Comment PT (9.8-11.6) sec INR Ratio APTT (24.3-30.1) sec Sodium 140 (136-145) meq/L Potassium 3.8 (3.5-5.1) meq/L Chloride 104 (98-107) meq/L Carbon Dioxide 27.0 (21.0-32.0) meq/L Anion Gap 9 (5-15) meq/L BUN 13 (7-18) mg/dL Creatinine 0.70 (0.50-1.00) mg/dL Estimated GFR 85 L (>89) mL/min Random Glucose 94 (74-106) mg/dL Calcium 8.1 L (8.5-10.1) mg/dL Magnesium 2.3 (1.5-2.5) mg/dL Total Bilirubin 0.4 (0.2-1.0) mg/dL AST 22 (15-37) U/L ALT 29 (10-53) U/L Alkaline Phosphatase 80 (45-117) U/L Total Protein 6.4 (6.4-8.2) g/dL Albumin 3.2 L (3.4-5.0) g/dL Lipase 68 L (73-393) U/L Urine Color (Yellw/Straw) Urine Clarity (Clear) Urine pH (5.0-8.5) Ur Specific [place] (1.002-1.035) Urine Protein (Neg-Trace) mg/dL Urine Glucose (UA) (Negative) mg/dL Urine Ketones (Negative) mg/dL Urine Occult Blood (Negative) Urine Nitrate (Negative) Urine Bilirubin (Negative) Urine Ictotest (Negative) Urine Urobilinogen (Less than 2) mg/dL Ur Leukocyte Esterase (Negative) Urine RBC (0-3) /hpf Urine WBC (0-5) /hpf Ur Squamous Epith Cells (0-5) /hpf Micro UA Comment Ur Microscopic Review Urine Culture Comments Discharge Plan Discharge Disposition Patient Disposition: 30 Still Patient Discharge Condition Condition: Stable Discharge Details Diagnosis: Colitis Physicians Team ED Provider: Vinita Kim Primary Care Provider: Dayanna Leslie Rxs /Orders / Referrals /Forms Prescriptions: No Action silver sulfadiazine 1 % Cream 1 applic TOPICAL DAILY RF: 0 [id number]-[id number]-fzr C-Mn [Glucosamine-Chondroitin Complx] Capsule 1 tab PO DAILY RF: 0 alendronate 70 mg Tablet 70 mg PO QWEEK RF: 0 metronidazole 500 mg Tablet 500 mg PO TID RF: 0 ciprofloxacin HCl 500 mg Tablet 500 mg PO Q12H RF: 0 aspirin 81 mg Tablet,Delayed Release (Dr/Ec) 81 mg PO DAILY RF: 0 ondansetron 4 mg Tablet,Disintegrating 4 mg PO Q6-8H PRN (Reason: Acid Reflux) RF: 0 omega-3 fatty acids-fish oil [Fish Oil] 360-1,200 mg Capsule 1 cap PO BID RF: 0 Status ED Status: With Doctor
[2018-06-30 11:00] LABS: Clarity,Urine Clear (Clear); Glucose,Urine (UA) Negative (Negative); Leukocyte Esterase,Urine Trace (Negative); Nitrite,Urine Positive (Negative); Specific Gravity,Urine Greater/Equal 1.030 (1.002-1.035)
[2018-06-30 11:14] LABS: Baso % (Auto) 0.8 % (0.0-2.0); Eos # (Auto) 0.1 th/mm3 (0.0-0.4); Eos % (Auto) 2.6 % (0.0-4.0); Hematocrit 39.6 % (35.0-46.0); Hemoglobin 13.8 gm/dL (11.6-15.3); Lymph # (Auto) 0.6 th/mm3 (1.0-4.8); Lymph % (Auto) 15.6 % (9.0-44.0); Mean Corpuscular HGB Conc 34.8 % (32.0-36.0); Mean Corpuscular Hemoglobin 31.4 pg (27.0-34.0); Mean Corpuscular Volume 90.2 fL (80.0-100.0); Mean Platelet Volume 7.7 fL (7.0-11.0); Mono # (Auto) 0.4 th/mm3 (0.0-0.9); Mono % (Auto) 10.5 % (0.0-8.0); Neut % (Auto) 70.5 % (16.0-70.0); Platelet Count 227 th/mm3 (150-450); Red Blood Count 4.39 mil/mm3 (4.00-5.30); Red Cell Distribution Width 12.8 % (11.6-17.2); White Blood Count 4.1 th/mm3 (4.0-11.0)
[2018-06-30 11:19] LABS: Bilirubin,Urine Negative (Negative); Color,Urine Yellow (Yellw/Straw); Ictotest,Urine Negative (Negative)
[2018-06-30 11:20] LABS: RBC,Urine 0-3 /hpf (0-3); Squamous Epithelial Cell,Urine 0-5 /hpf (0-5); WBC,Urine 0-5 /hpf (0-5)
[2018-06-30 11:23] LABS: Chloride 104 meq/L (98-107); Potassium 3.8 meq/L (3.5-5.1); Sodium 140 meq/L (136-145)
[2018-06-30 11:27] LABS: Activated Partial Thrombo Time 28.3 sec (24.3-30.1); Albumin 3.2 g/dL (3.4-5.0); Anion Gap 9 meq/L (5-15); Blood Urea Nitrogen 13 mg/dL (7-18); Calcium 8.1 mg/dL (8.5-10.1); Glucose,Random 94 mg/dL (74-106); INR 1.1 Ratio; Lipase 68 U/L (73-393); Magnesium 2.3 mg/dL (1.5-2.5); Prothrombin Time 11.5 sec (9.8-11.6)
[2018-06-30 11:30] LABS: Alanine Aminotransferase 29 U/L (10-53); Aspartate Aminotransferase 22 U/L (15-37); Glomerular Filtration Rate 85 mL/min (>89)
[2018-06-30 11:32] LABS: Total Protein 6.4 g/dL (6.4-8.2)
[2018-06-30 11:33] LABS: Alkaline Phosphatase 80 U/L (45-117)
[2018-06-30] MEDS ORDERED: Bisacodyl 10 MG Supp RECTAL PRN (12:56)
[2018-06-30] MEDS ORDERED: Temazepam 15 MG Capsule PO PRN (12:56)
[2018-06-30] MEDS ORDERED: Acetaminophen 325 MG Tablet PO PRN ×2 (12:56)
[2018-06-30] MEDS ORDERED: Morphine Inj 4 MG/ML Vial IV.PUSH PRN (12:56)
[2018-06-30] MEDS ORDERED: Naloxone Inj 0.4 MG/ML Vial IV.PUSH PRN (12:56)
[2018-06-30] MEDS: Sod Chloride 0.9% Inj 1,000 ML IV.CONT SCH ×2 (14:43→22:56)
[2018-06-30] MEDS: Piperacil/Tazo 3.375 GM Premix 50 ML IV.SIG SCH ×2 (14:43→20:06)
--- NOTE | 2018-06-30 17:33 | P.HPFP ---
History of Present Illness Primary Care Physician: Dayanna Leslie MD History of Present Illness: This is a very pleasant 62-year-old female who presents for diffuse abdominal pain beginning 5 days ago. Started with diarrhea mixed with some bright red blood. She continued to have the same symptoms on Tuesday The patient states that on Tuesday she began to feel better however 2 days ago she began to have the constant abdominal pain which felt better only when doubling up her stomach. Again started having watery stools with bright red blood. Today she has had only pellet-like stools. She had been on Cipro and Flagyl as an outpatient but was not improving so was referred to the ER. Her primary care physician ordered an abdominal CT scan on 06/28/18 which showed diffuse thickening involving the wall of the colon suggesting diffuse colitis, and are most prominent in the region of the sigmoid colon, scattered diverticula are also noted. The patient states that she had a normal colonoscopy last year. She states she has had multiple bouts of diverticulitis in the past. Urinalysis is also indicative of of infection and on further review of systems she does endorse some dysuria. Inpatient Certification: I certify that the inpatient services were ordered in accordance with Medicare regulations governing the order. This includes certification that hospital inpatient services are reasonable and necessary and in the case of services not specified as inpatient-only under 42 CFR 419.22(n), that they are appropriately provided as inpatient services in accordance to with the 2-midnight benchmark under 43 CFR 412.3(e) Estimated Total Length of Stay (Days): 3 Plans for Post Hospital Care: Home Review of Systems All other systems reviewed negative except as stated in HPI [facility] - History History Provided By: Patient, Medical Record - Medical History Medical History: Medical History (Last Reviewed 06/30/18 @ 17:27 by Caroline Bagley MD) Diverticulitis History of hysterectomy Osteoporosis - Surgical History Surgical History: Surgical History (Last Reviewed 06/30/18 @ 17:27 by Caroline Bagley MD) History of hand surgery History of knee surgery Hx of foot surgery - Family History Family History: Family History (Last Updated 06/30/18 @ 17:26 by Caroline Bagley MD) Father Myocardial infarct Mother Cerebral aneurysm - Social History I have reviewed the patient's Social History: Yes - Tobacco History Second Hand Smoke Exposure: No Tobacco Use In Past 30 Days: Yes Smoking Status: Former smoker (10 pack years hermelindo in 2017) Tobacco Type: Cigars - Alcohol History How Often Do You Have a Drink Containing Alcohol: Never - Substance Use History Substance History: No History of Abuse - Travel History Recent Travel in the [place] Within the Last 8 Weeks: No Recent Travel Out of the Country Within the Last 8 Weeks: No - Immunization History Tetanus Immunization: <5 Years Hx Influenza Vaccine This Season: No Medications and Allergies Active Medications: Active Medications Acetaminophen (Tylenol) 650 mg PO Q4H PRN PRN Reason: Temp > 100.4 Acetaminophen (Tylenol) 650 mg PO Q6HR PRN PRN Reason: PAIN SCALE 1 TO 2 Al Hydroxide/Mg Hydroxide (Milk Of Magnesia Liq) 30 ml PO Q12H PRN PRN Reason: Mild Constipation Bisacodyl (Dulcolax Supp) 10 mg RECTAL DAILY PRN PRN Reason: SEVERE CONSITIPATION Piperacillin/Tazobactam/Dextrose (Zosyn 3.375 Gm Premix) 50 mls @ 100 mls/hr IV.SIG Q6H [facility] Last Infusion: 06/30/18 15:17 Dose: Infused Sodium Chloride (Ns Inj) 1,000 mls @ 100 mls/hr IV.CONT .Q10H [facility] Last Admin: 06/30/18 14:43 Dose: 100 mls/hr Lactulose (Lactulose Liq) 30 ml PO DAILY PRN PRN Reason: SEVERE CONSITIPATION Morphine Sulfate (Morphine Inj) 4 mg IV.PUSH Q3H PRN PRN Reason: PAIN 6-10;IF UNABLE TO TAKE PO Naloxone HCl (Narcan Inj) 0.4 mg IV.PUSH UNSCH PRN PRN Reason: SEE LABEL COMMENTS Ondansetron HCl (Zofran Inj) 4 mg IV.PUSH Q6H PRN PRN Reason: NAUSEA OR VOMITING Oxycodone HCl (Roxicodone) 5 mg PO Q4H PRN PRN Reason: PAIN SCALE 3 TO 5 Last Admin: 06/30/18 15:16 Dose: 5 mg Oxycodone HCl (Roxicodone) 10 mg PO Q4H PRN PRN Reason: PAIN SCALE 6 TO 10 Sennosides (Senokot) 17.2 mg PO Q12H PRN PRN Reason: Moderate Constipation Silver Sulfadiazine (Silvadene 1% Cream (50 Gm)) 1 applicatio TOPICAL DAILY [facility] Sodium Chloride (Ns Flush) 2 ml IV.FLUSH PRN PRN PRN Reason: FLUSH AFTER USING IV ACCESS Temazepam (Restoril) 15 mg PO HS PRN PRN Reason: INSOMNIA Allergies Allergy/AdvReac Type Severity Reaction Status Date / Time No Known Allergies Allergy Verified 06/30/18 10:09 Home Medications Medication Instructions Recorded Confirmed Type alendronate 70 mg PO QWEEK 06/30/18 06/30/18 History aspirin 81 mg PO DAILY 06/30/18 06/30/18 History ciprofloxacin HCl 500 mg PO Q12H 06/30/18 06/30/18 History iylnppczzoq-tksqllrjl-czt C-Mn 1 tab PO DAILY 06/30/18 06/30/18 History [Glucosamine-Chondroitin Complx] metronidazole 500 mg PO TID 06/30/18 06/30/18 History omega-3 fatty acids-fish oil [Fish 1 cap PO BID 06/30/18 06/30/18 History Oil] ondansetron 4 mg PO Q6-8H PRN 06/30/18 06/30/18 History silver sulfadiazine 1 applic TOPICAL DAILY 06/30/18 06/30/18 History Exam Vital signs: Vital Signs 06/30/18 10:09 06/30/18 10:35 06/30/18 11:19 Temperature 97.8 F Pulse Rate 74 77 77 Respiratory Rate 18 Blood Pressure 144/67 H 139/72 Pulse Oximetry 95 93 L 06/30/18 12:51 06/30/18 16:00 Temperature 97.5 F L Pulse Rate 61 Respiratory Rate 18 Blood Pressure 146/58 H 140/63 Pulse Oximetry 94 L 95 Intake & Output 06/29/18 06/30/18 06/30/18 18:59 06:59 18:59 Intake Total 1050 / 1050 Balance 1050 / 1050 Weight 56.6 kg Intake: IV 1050 / 1050 Zosyn 3.375 GM Premix 50 ML @ 50 / 50 100 mls/hr IV.SIG Q6H [facility] Rx#: [id number] NS Inj 1,000 ML @ Wide Open IV. 1000 / 1000 SIG BOLUS ONE Rx#:[id number] Narrative: GENERAL: This is a well-nourished, well-developed elderly patient, in no apparent distress. CARDIOVASCULAR: Regular rate and rhythm without murmurs, gallops, or rubs. RESPIRATORY: Clear to auscultation. Breath sounds equal bilaterally. No wheezes , rales, or rhonchi. GASTROINTESTINAL: Abdomen soft, +ttp to deep palpation in LLQ, nondistended. Normal active bowel sounds MUSCULOSKELETAL: Extremities without clubbing, cyanosis, or edema. NEURO: Alert & Oriented x4 to person, place, time, situation. Moves all ext x4 Results - Labs Result diagrams: 06/30/18 11:00 06/30/18 11:00 Abnormal lab results 06/30/18 06/30/18 06/30/18 Range/Units 10:50 11:00 11:00 Neut % (Auto) 70.5 H (16.0-70.0) % [place] % (Auto) 10.5 H (0.0-8.0) % Lymph # (Auto) 0.6 L (1.0-4.8) th/mm3 Estimated GFR 85 L (>89) mL/min Calcium 8.1 L (8.5-10.1) mg/dL Albumin 3.2 L (3.4-5.0) g/dL Lipase 68 L (73-393) U/L Urine Protein 100 H (Neg-Trace) mg/dL Urine Ketones 40 H (Negative) mg/dL Urine Nitrate Positive H (Negative) Ur Leukocyte Esterase Trace H (Negative) Short CBC 06/30/18 Range/Units 11:00 WBC 4.1 (4.0-11.0) th/mm3 Hgb 13.8 (11.6-15.3) gm/dL Hct 39.6 (35.0-46.0) % Plt Count 227 (150-450) th/mm3 BMP 06/30/18 11:00 Sodium 140 Potassium 3.8 Chloride 104 Carbon Dioxide 27.0 BUN 13 Creatinine 0.70 Calcium 8.1 L Liver Function 06/30/18 Range/Units 11:00 Total Bilirubin 0.4 (0.2-1.0) mg/dL AST 22 (15-37) U/L ALT 29 (10-53) U/L Alkaline Phosphatase 80 (45-117) U/L Albumin 3.2 L (3.4-5.0) g/dL Urine 06/30/18 Range/Units 10:50 Urine Color Yellow (Yellw/Straw) Urine Clarity Clear (Clear) Urine pH 5.0 (5.0-8.5) Ur Specific [place] Greater/equal 1.030 (1.002-1.035) Urine Protein 100 H (Neg-Trace) mg/dL Urine Glucose (UA) Negative (Negative) mg/dL Caprini VTE Risk Assessment Caprini VTE Risk Assessment: No/Low Risk (score <= 1) Caprini Risk Assessment Model: Point Value = 1 Point Value = 2 Point Value = 3 Point Value = 5 Age 41-60 Minor surgery BMI > 25 kg/m2 Swollen legs Varicose veins or History of unexplained or recurrent spontaneous Oral contraceptives or hormone replacement Sepsis (< 1 month) Serious lung disease, including pneumonia (< 1 month) Abnormal pulmonary function Acute myocardial infarction Congestive heart failure (< 1 month) History of inflammatory bowel disease Medical patient at bed rest Age 61-74 Arthroscopic surgery Major open surgery (> 45 min) Laparoscopic surgery (> 45 min) Malignancy Confined to bed (> 72 hours) Immobilizing plaster cast Central venous access Age >= 75 History of VTE Family history of VTE Factor V Leiden Prothrombin [id number] Lupus anticoagulant Anticardiolipin antibodies Elevated serum homocysteine Heparin-induced thrombocytopenia Other congenital or acquired thrombophilia Stroke (< 1 month) Elective arthroplasty Hip, pelvis, or leg fracture Acute spinal cord injury (< 1 month) Prophylaxis Regimen: Total Risk Factor Score Risk Level Prophylaxis Regimen 0-1 Low Early ambulation 2 Moderate Order ONE of the following: *Sequential Compression Device (SCD) *Heparin 5000 units SQ BID 3-4 Higher Order ONE of the following medications: *Heparin 5000 units SQ TID *Enoxaparin/Lovenox 40 mg SQ daily (WT < 150 kg, CrCl > 30 mL/min) *Enoxaparin/Lovenox 30 mg SQ daily (WT < 150 kg, CrCl > 10-29 mL/min) *Enoxaparin/Lovenox 30 mg SQ BID (WT < 150 kg, CrCl > 30 mL/min) AND/OR *Sequential Compression Device (SCD) 5 or more Highest Order ONE of the following medications: *Heparin 5000 units SQ TID (Preferred with Epidurals) *Enoxaparin/Lovenox 40 mg SQ daily (WT < 150 kg, CrCl > 30 mL/min) *Enoxaparin/Lovenox 30 mg SQ daily (WT < 150 kg, CrCl > 10-29 mL/min) *Enoxaparin/Lovenox 30 mg SQ BID (WT < 150 kg, CrCl > 30 mL/min) AND *Sequential Compression Device (SCD) Assessment and Plan - Assessment and Plan Diffuse colitis -rule out C. difficile, rule out ulcerative colitis/Crohn's disease. Consult gastroenterology. I have placed her on Zosyn as she failed Cipro and Flagyl in the outpatient setting. -UTI, continue Zosyn. -DVT prophylaxis with SCDs. H&P: Quality - VTE Deep Vein Thrombosis/Pulmonary Embolism Present on Admission: No
[2018-07-01] MEDS: Piperacil/Tazo 3.375 GM Premix 50 ML IV.SIG SCH ×4 (01:25→19:36)
--- NOTE | 2018-07-01 07:26 | P.PN ---
Subjective Interval history: Pain improving. Diarrhea less frequent and starting to have some formed stool as well. No vomiting. Awaiting GI. Physical Exam Vital signs: Vital Signs 06/30/18 10:09 06/30/18 10:35 06/30/18 11:19 Temperature 97.8 F Pulse Rate 74 77 77 Respiratory Rate 18 Blood Pressure 144/67 H 139/72 Pulse Oximetry 95 93 L 06/30/18 12:51 06/30/18 16:00 06/30/18 20:00 Temperature 97.5 F L 96.7 F L Pulse Rate 61 63 Respiratory Rate 18 20 Blood Pressure 146/58 H 140/63 124/58 L Pulse Oximetry 94 L 95 95 07/01/18 00:00 Temperature 97.5 F L Pulse Rate 75 Respiratory Rate 20 Blood Pressure 118/66 Pulse Oximetry 95 Intake & Output 06/30/18 07/01/18 07/01/18 18:59 06:59 18:59 Intake Total 1290 / 1290 1340 / 1340 Balance 1290 / 1290 1340 / 1340 Weight 56.6 kg 56.4 kg Intake: IV 1050 / 1050 1100 / 1100 NS Inj 1,000 ML @ 100 mls/hr IV 1000 / 1000 .CONT .Q10H [facility] Rx#:[id number] Zosyn 3.375 GM Premix 50 ML @ 50 / 50 100 / 100 100 mls/hr IV.SIG Q6H [facility] Rx#: [id number] NS Inj 1,000 ML @ Wide Open IV. 1000 / 1000 SIG BOLUS ONE Rx#:[id number] Oral 240 / 240 240 / 240 Other: # Voids 3 # Bowel Movements 3 Narrative: GENERAL: No acute distress, alert and oriented, pleasant. SKIN: Warm and dry. HEAD: Atraumatic. Normocephalic. EYES: Pupils equal and round. No scleral icterus. No injection or drainage. ENT: No nasal bleeding or discharge. Mucous membranes pink and moist. NECK: Trachea midline. No JVD. CARDIOVASCULAR: Regular rate and rhythm. RESPIRATORY: No accessory muscle use. Clear to auscultation. Breath sounds equal bilaterally. GASTROINTESTINAL: Abdomen soft, mildly distended, mild tenderness to palpation in left lower quadrant. No guarding or rebound. Bowel sounds normal.. Hepatic and splenic margins not palpable. MUSCULOSKELETAL: Extremities without clubbing, cyanosis, or edema. No obvious deformities. NEUROLOGICAL: Awake and alert. No obvious cranial nerve deficits. Motor grossly within normal limits. Five out of 5 muscle strength in the arms and legs. Normal speech. PSYCHIATRIC: Appropriate mood and affect; insight and judgment normal. Results - Labs CBC & Chem 7: 06/30/18 11:00 06/30/18 11:00 Laboratory Results - last 24 hr 06/30/18 06/30/18 06/30/18 10:50 11:00 11:00 CBC w Diff Auto diff final WBC 4.1 RBC 4.39 Hgb 13.8 Hct 39.6 MCV 90.2 MCH 31.4 MCHC 34.8 RDW 12.8 Plt Count 227 MPV 7.7 Neut % (Auto) 70.5 H Lymph % (Auto) 15.6 [place] % (Auto) 10.5 H Eos % (Auto) 2.6 Baso % (Auto) 0.8 Neut # (Auto) 3.0 Lymph # (Auto) 0.6 L [place] # (Auto) 0.4 Eos # (Auto) 0.1 Baso # (Auto) 0.0 WBC Differential . Differential Comment . PT 11.5 INR 1.1 APTT 28.3 Sodium Potassium Chloride Carbon Dioxide Anion Gap BUN Creatinine Estimated GFR Random Glucose Calcium Magnesium Total Bilirubin AST ALT Alkaline Phosphatase Total Protein Albumin Lipase Urine Color Yellow Urine Clarity Clear Urine pH 5.0 Ur Specific [place] Greater/equal 1.030 Urine Protein 100 H Urine Glucose (UA) Negative Urine Ketones 40 H Urine Occult Blood Negative Urine Nitrate Positive H Urine Bilirubin Negative Urine Ictotest Negative Urine Urobilinogen 1.0 Ur Leukocyte Esterase Trace H Urine RBC 0-3 Urine WBC 0-5 Ur Squamous Epith Cells 0-5 Micro UA Comment Culture not ind Ur Microscopic Review Microscopic reviewed Urine Culture Comments Culture not ind Stl C.difficile DNA Amp St C. diff Tox Epid 027 06/30/18 06/30/18 11:00 18:00 CBC w Diff WBC RBC Hgb Hct MCV MCH MCHC RDW Plt Count MPV Neut % (Auto) Lymph % (Auto) [place] % (Auto) Eos % (Auto) Baso % (Auto) Neut # (Auto) Lymph # (Auto) [place] # (Auto) Eos # (Auto) Baso # (Auto) WBC Differential Differential Comment PT INR APTT Sodium 140 Potassium 3.8 Chloride 104 Carbon Dioxide 27.0 Anion Gap 9 BUN 13 Creatinine 0.70 Estimated GFR 85 L Random Glucose 94 Calcium 8.1 L Magnesium 2.3 Total Bilirubin 0.4 AST 22 ALT 29 Alkaline Phosphatase 80 Total Protein 6.4 Albumin 3.2 L Lipase 68 L Urine Color Urine Clarity Urine pH Ur Specific [place] Urine Protein Urine Glucose (UA) Urine Ketones Urine Occult Blood Urine Nitrate Urine Bilirubin Urine Ictotest Urine Urobilinogen Ur Leukocyte Esterase Urine RBC Urine WBC Ur Squamous Epith Cells Micro UA Comment Ur Microscopic Review Urine Culture Comments Stl C.difficile DNA Amp Negative St C. diff Tox Epid 027 Negative Assessment and Plan - Assessment (1) Colitis Code(s): K52.9 - Noninfective gastroenteritis and colitis, unspecified Status : Acute Plan: Clinically much better. continue current tx. Pt is walking to restroom often in room. (2) Urine findings abnormal Code(s): R82.90 - Unspecified abnormal findings in urine Status: Acute Plan: Currently on abx. No dysuria per pt. - Plan Code Status: full
[2018-07-01 07:44] LABS: Potassium 3.7 meq/L (3.5-5.1)
[2018-07-01 08:05] LABS: Albumin 2.8 g/dL (3.4-5.0); Carbon Dioxide 27.8 meq/L (21.0-32.0); Total Protein 5.5 g/dL (6.4-8.2)
[2018-07-01 08:06] LABS: Calcium 7.3 mg/dL (8.5-10.1)
[2018-07-01] MEDS ORDERED: MethylPREDNISolone Sod Succinate Inj 40 MG/ML Vial IV.PUSH ONE (09:02)
--- NOTE | 2018-07-01 11:14 | MB ---
cc: Chidi Rothman MD DATE: 07/01/2018 REASON FOR REFERRAL: Abdominal pain. HISTORY OF PRESENT ILLNESS: Thank you for the consultation. This is a pleasant 62-year-old lady who complains of abdominal pain for the last 6 days with some diarrhea and some blood in the stool. The patient has a known history of diverticulitis in the past. Her symptoms started with a focal left lower quadrant pain, about 6-7/10, and then started to become more crampy and she had the diarrhea, watery with bright red blood. The patient is known to have diverticulitis. She was on Cipro and Flagyl as an outpatient and she was sent to the hospital for evaluation. In the ER she had a CT scan, which showed thickening of the wall of the colon, suggestive of diffuse colitis and possible diverticulosis. She had a colonoscopy about a year ago by Dr. Chow and she had 3 diverticulitis attacks in the last 2-3 years. Currently the patient is lying in bed, seems to be more comfortable, still some discomfort. No bleeding and her diarrhea subsided and overall feeling good. ALLERGIES: NO KNOWN DRUG ALLERGIES. REVIEW OF SYSTEMS: All 12 points negative except HPI. FAMILY HISTORY: Significant for FL, CVA. PAST MEDICAL HISTORY: Significant for ulcer, hysterectomy, osteoporosis, and diverticulitis. PAST SURGICAL HISTORY: Significant for hand surgery, knee surgery, foot surgery. SOCIAL HISTORY: Negative for alcohol. She used to smoke until about a year ago. No recent travel. MEDICATIONS: Reviewed in the chart. PHYSICAL EXAMINATION: GENERAL: Alert, oriented, in no acute distress. VITAL SIGNS: Stable. GENERAL: No fevers. HEENT: Pupils round, reactive to light. NECK: Supple. LUNGS: Clear to auscultation and percussion. CARDIAC: Regular rate and rhythm. ABDOMEN: Soft, nondistended, mild tenderness in the left lower quadrant. No hepatosplenomegaly. Mild obesity. EXTREMITIES: No edema, clubbing, or cyanosis. NEUROLOGIC: Alert, oriented. No focal abnormalities. PSYCHOLOGIC: Appropriate. SKIN: Clear. No jaundice. LABORATORY DATA: White count 4.1, hemoglobin 13.8, platelet 227. INR 1.1. Liver function tests mild elevation of the AST of 39, ALT 31, alkaline phosphatase 71, lipase was 68. Creatinine 0.75. Urine was reviewed. C. difficile was negative. CT scan seems to be done as an outpatient, I have no access to the report other than note that shows that there was thickening of the colon from 06/28/2018, diffuse thickening involving the wall of the colon suggestive of diffuse colitis, most prominent in the region of the sigmoid. ASSESSMENT AND PLAN: The patient has rectal bleeding, possible colitis, could be infectious versus diverticulitis, which from the reading of the CT scan report, is less likely. We will continue antibiotic, the patient will need colonoscopy. This could be done as an outpatient in a few weeks after the colitis or particularly, the diverticulitis subsides. If symptoms continue to be worse, then we will do colonoscopy as an inpatient. Further plan depends on how she is doing. Meanwhile, we will continue supportive care, if she is doing better we can advance diet tomorrow and will continue the antibiotic. Chidi Rothman MD /juan jose , 09:55 AM , 10:06 AM
[2018-07-01] MEDS: Sod Chloride 0.9% Inj 1,000 ML IV.CONT SCH ×2 (12:25→19:35)
[2018-07-02] MEDS: Piperacil/Tazo 3.375 GM Premix 50 ML IV.SIG SCH (01:56)
[2018-07-02] MEDS: Sod Chloride 0.9% Inj 1,000 ML IV.CONT SCH (04:15)
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
[2018-07-02] MEDS: Amoxicillin/Clavulanate 875/125 MG Tablet PO SCH ×2 (08:08→22:03)
--- NOTE | 2018-07-02 09:52 | P.PNGI ---
Subjective Interval history: Patient doing well, she has less diarrhea, the stool is soft but still frequent , tolerated diet this morning, C. difficile was negative Physical Exam Vital signs: Vital Signs 07/01/18 11:05 07/01/18 12:00 07/01/18 16:00 Temperature 97.2 F L 96.5 F L Pulse Rate 62 72 Respiratory Rate 16 20 20 Blood Pressure 148/67 H 116/63 Pulse Oximetry 94 L 94 L 07/01/18 16:10 07/01/18 20:00 07/02/18 00:00 Temperature 97.4 F L 97.1 F L Pulse Rate 74 76 Respiratory Rate 17 20 20 Blood Pressure 119/59 L 120/60 Pulse Oximetry 96 97 07/02/18 08:00 07/02/18 08:08 Temperature 97.3 F L Pulse Rate 63 Respiratory Rate 20 18 Blood Pressure 142/64 H Pulse Oximetry 96 Intake & Output 07/01/18 07/02/18 07/02/18 18:59 06:59 18:59 Intake Total 2180 / 2180 2700 / 2700 440 / 440 Output Total 200 / 200 Balance 2180 / 2180 2700 / 2700 240 / 240 Weight 59.4 kg Intake: IV 1100 / 1100 2100 / 2100 200 / 200 NS Inj 1,000 ML @ 100 mls/hr IV 1000 / 1000 2000 / 2000 200 / 200 .CONT .Q10H [facility] Rx#:[id number] Zosyn 3.375 GM Premix 50 ML @ 100 / 100 100 / 100 100 mls/hr IV.SIG Q6H [facility] Rx#: [id number] Oral 1080 / 1080 600 / 600 240 / 240 Output: Urine 200 / 200 Other: # Voids 4 4 # Bowel Movements 3 - Constitutional no acute distress - Routine HEENT Exam Head: Present: normocephalic ENT: Present: mucous membranes moist - Routine Neck Exam Present: supple, full ROM - Routine Respiratory Exam Present: CTA bilaterally - Routine Cardiovascular Exam Present: RRR, S1 - Routine Abdominal Exam Present: soft, normoactive bowel sounds - Routine Extremities Exam Present: full ROM, pulses intact - Routine Skin Exam Present: intact - Routine Neurological Exam Present: alert, oriented X3 - Detailed Neurological Exam: Coma Scale Eye Opening: Spontaneous - Routine Psychiatric Exam Present: normal affect Results - Labs CBC & Chem 7: 06/30/18 11:00 07/01/18 06:33 Assessment and Plan - Plan Patient has diarrhea and abdominal discomfort, most likely gastroenteritis, C. difficile was negative, patient is improving overnight Will advance diet as tolerated If bowel movements low in the afternoon and tolerated lunch and dinner consider discharging either tonight or tomorrow morning
[2018-07-03 00:27] VITALS: TEMP 96.8
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
--- NOTE | 2018-07-03 07:12 | P.DS ---
Date of admission: 06/30/18 12:56 Primary care physician: Dayanna Leslie MD Brief History from admission: This is a very pleasant 62-year-old female who presents for diffuse abdominal pain beginning 5 days ago. Started with diarrhea mixed with some bright red blood. She continued to have the same symptoms on Tuesday The patient states that on Tuesday she began to feel better however 2 days ago she began to have the constant abdominal pain which felt better only when doubling up her stomach. Again started having watery stools with bright red blood. Today she has had only pellet-like stools. She had been on Cipro and Flagyl as an outpatient but was not improving so was referred to the ER. Her primary care physician ordered an abdominal CT scan on 06/28/18 which showed diffuse thickening involving the wall of the colon suggesting diffuse colitis, and are most prominent in the region of the sigmoid colon, scattered diverticula are also noted. The patient states that she had a normal colonoscopy last year. She states she has had multiple bouts of diverticulitis in the past. Urinalysis is also indicative of of infection and on further review of systems she does endorse some dysuria. DS: Diagnosis - Discharge Diagnosis (1) Colitis Status: Acute (2) Urine findings abnormal Status: Acute DS: Medications - Discharge Medications Prescriptions: hydrocodone-acetaminophen [Okay] 1 tab PO Q6H PRN #12 tab PRN Reason: pain level 3-10 DS: Summary Hospital Course: Pt placed on Zosyn IV and IVF. Her condition improved throughout stay. She tolerated PO well. Diarrhea was still present, but stool was beginning to form somewhat. No f/c. Abd pain improved. GI evaluated pt and recommended colonoscopy in 1-2 weeks as outpt. - Time Spent with Patient Total time spent providing and/or coordinating discharge services: Less than 30 minutes - Quality: VTE Deep Vein Thrombosis/Pulmonary Embolism Present on Admission: No Exam Vital signs: Vital Signs 07/02/18 08:00 07/02/18 08:08 07/02/18 12:00 Temperature 97.3 F L 97.8 F Pulse Rate 63 67 Respiratory Rate 20 18 21 Blood Pressure 142/64 H 129/62 Pulse Oximetry 96 96 07/02/18 16:00 07/02/18 18:37 07/02/18 20:00 Temperature 97.7 F 96.4 F L Pulse Rate 65 67 Respiratory Rate 21 17 18 Blood Pressure 109/60 117/57 L Pulse Oximetry 96 96 07/03/18 00:00 07/03/18 02:13 Temperature 96.8 F L Pulse Rate 66 Respiratory Rate 18 18 Blood Pressure 131/70 Pulse Oximetry 18 L Intake & Output 07/02/18 07/03/18 07/03/18 18:59 06:59 18:59 Intake Total 1280 / 1280 150 / 150 Output Total 1040 / 1040 600 / 600 Balance 240 / 240 -450 / -450 Weight 59 kg Intake: IV 200 / 200 NS Inj 1,000 ML @ 100 mls/hr IV 200 / 200 .CONT .Q10H [facility] Rx#:[id number] Oral 1080 / 1080 150 / 150 Output: Urine 1040 / 1040 600 / 600 Other: Date of Last Bowel Movement 07/02/18 Results Procedures completed during hospitalization: none Discharge Plan - Discharge Disposition Patient Disposition: 01 Discharge Home - Discharge Condition Condition: Stable - Discharge Order Discharge Orders: Discharge Order (Routine); Ordered 07/03/18 Ordered By: Farrukh Britt - Discharge Details Anticipated Discharge Date: 07/03/18 - Physicians Team Primary Care Provider: Dayanna Leslie Attending Provider: Caroline Bagley Other Providers: Chidi Rothman MD
--- NOTE | 2018-07-03 07:50 | P.PNGI ---
Subjective Interval history: Laying comfortably in bed eating breakfast feeling better ready to be discharged but still has soft stools but no bleeding Physical Exam Vital signs: Vital Signs 07/02/18 08:00 07/02/18 08:08 07/02/18 12:00 Temperature 97.3 F L 97.8 F Pulse Rate 63 67 Respiratory Rate 20 18 21 Blood Pressure 142/64 H 129/62 Pulse Oximetry 96 96 07/02/18 16:00 07/02/18 18:37 07/02/18 20:00 Temperature 97.7 F 96.4 F L Pulse Rate 65 67 Respiratory Rate 21 17 18 Blood Pressure 109/60 117/57 L Pulse Oximetry 96 96 07/03/18 00:00 07/03/18 02:13 Temperature 96.8 F L Pulse Rate 66 Respiratory Rate 18 18 Blood Pressure 131/70 Pulse Oximetry 18 L Intake & Output 07/02/18 07/03/18 07/03/18 18:59 06:59 18:59 Intake Total 1280 / 1280 150 / 150 Output Total 1040 / 1040 600 / 600 Balance 240 / 240 -450 / -450 Weight 59 kg Intake: IV 200 / 200 NS Inj 1,000 ML @ 100 mls/hr IV 200 / 200 .CONT .Q10H [facility]I Rx#:[id number] Oral 1080 / 1080 150 / 150 Output: Urine 1040 / 1040 600 / 600 Other: Date of Last Bowel Movement 07/02/18 - Constitutional no acute distress - Routine HEENT Exam Head: Present: normocephalic Eye: Present: EOMI ENT: Present: mucous membranes moist - Routine Neck Exam Present: supple - Routine Respiratory Exam Present: CTA bilaterally - Routine Cardiovascular Exam Present: RRR, S1, S2 - Routine Abdominal Exam Present: soft, normoactive bowel sounds. Absent: tenderness, distended - Routine Extremities Exam Absent: cyanosis, clubbing, edema Results - Labs CBC & Chem 7: 06/30/18 11:00 07/01/18 06:33 - Procedures none Assessment and Plan - Plan Diarrhea appears to be resolving abdominal pain has resolved and so has the rectal bleeding Patient to follow-up with GI post discharge Recommend high-fiber diet and to finish up with the course of antibiotics
[2018-07-03 08:11] VITALS: RESP 17
[2018-07-03] MEDS: Amoxicillin/Clavulanate 875/125 MG Tablet PO SCH (08:13)
[2018-07-03 09:22] VITALS: BP 139/64; PULSE 75; O2SAT 93
== END 2018-07-03 08:45 | disposition home or self-care (01) ==
LOC: PHEDA 10:06 → PHED 10:06 → PH3 12:45
PROVIDERS: ADMIT Family Medicine; ATTEND Family Medicine